=== PATIENT | female | born 1965 | race Caucasian/White ===

== ENCOUNTER 2017-04-22 17:41 | Emergency (ER) | payer MEDICAID ==
[~2017-04-22] VITALS: Ht 167.6 cm; Wt 102.2 kg
[2017-04-22 18:14] VITALS: BP 180/93
--- NOTE | 2017-04-22 18:25 | NUR ---
Patient ambulated to bed 8. RN evaluating patient at bedside.
[2017-04-22] MEDS ORDERED: IBUPROFEN 600 MG TAB PO ONE (18:35)
--- NOTE | 2017-04-22 18:38 | NUR ---
PATIENT PRESENTS TO ED WITH C/O RIGHT KNEE PAIN X 1 YR----EXACERBATED PAIN 2 DAYS AGO, NO RECENT INJURY;DENIES SWELLING, DISCOLORATION. DENIES NUMBNESS/TINGLING SENSATION ON RT LEG;DENIES ANY MEDICAL HX;ENIES N/V/D; SKIN IS PINK/WARM/DRY; AAOX4 WITH EVEN AND STEADY GAIT; LUNGS CLEAR BL; HR EVEN AND REGULAR; PT DENIES ANY FEVER, CP, SOB, OR COUGH AT THIS TIME; PATIENT STATES PAIN OF 8/10 AT THIS TIME;PATIENT POSITIONED FOR COMFORT; HOB ELEVATED; BEDRAILS UP X2; BED DOWN.PLANNER/SCHEDULER MADE AWARE OF PT STATUS.
--- NOTE | 2017-04-22 18:47 | NUR ---
AMBULATED TO THE RESTROOM.
[2017-04-22 20:06] VITALS: BP 150/96
== END 2017-04-22 20:07 | disposition home or self-care (01) ==
LOC: MED 17:41
DX: M25.561 Pain in right knee (principal)
CPT/HCPCS: 73562; 99284; Q0092

== ENCOUNTER 2018-06-13 12:20 | Emergency (ER) | payer SELFPAY ==
[~2018-06-13] VITALS: Ht 170.2 cm; Wt 104.3 kg
[2018-06-13 12:34] VITALS: BP 180/96
[2018-06-13] MEDS ORDERED: IBUPROFEN 600 MG TAB PO ONE (13:00)
[2018-06-13 14:13] VITALS: BP 165/87
== END 2018-06-13 14:13 | disposition home or self-care (01) ==
LOC: MED 12:20
DX: S80.02XA Contusion of left knee, initial encounter (principal); E11.9 Type 2 diabetes mellitus without complications; I10 Essential (primary) hypertension; Z90.49 Acquired absence of other specified parts of digestive tract; W11.XXXA Fall on and from ladder, initial encounter; Y93.89 Activity, other specified; Y92.89 Other specified places as the place of occurrence of the external cause; Y99.8 Other external cause status
CPT/HCPCS: 73562; 73590; 99284; Q0092

== ENCOUNTER 2019-03-16 14:01 | Emergency (ER) | payer SELFPAY ==
[~2019-03-16] VITALS: Ht 170.2 cm; Wt 105.3 kg
[2019-03-16 14:14] VITALS: BP 194/91
[2019-03-16] MEDS ORDERED: ALBUTEROL 0.083% 2.5 MG/3 ML NEBU INH ONE (15:05)
[2019-03-16] MEDS ORDERED: FAMOTIDINE 20 MG TAB PO ONE (15:05)
[2019-03-16] MEDS ORDERED: methylPREDNISolone SS 125 MG/2 ML VIAL IVP ONE (15:05)
[2019-03-16] MEDS ORDERED: PROMETHAZINE 25 MG/ML VIAL IM ONE (15:05)
[2019-03-16] MEDS ORDERED: IPRATROPIUM 0.02% 0.5 MG/2.5 ML NEBU INH ONE (15:05)
--- NOTE | 2019-03-16 15:06 | NUR ---
bib self for non productive cough x4 days. rr even and unlabored, bl bs clear throught out. dry hacking cough noted. pt awake and alert, in no respiratory distress. pt sitting in bed, no new needs at this time. no pmh
--- NOTE | 2019-03-16 15:07 | NUR ---
DR CASEY AT BEDSIDE FOR PT EVALUATION
[2019-03-16 15:58] LABS: BASOPHILS % (AUTO) 0.6 % (0.0-2.0); EOSINOPHILS # (AUTO) 0.3 K/uL (0-0.4); EOSINOPHILS % (AUTO) 3.6 % (0.0-4.0); HEMATOCRIT 41.8 % (36-48); HEMOGLOBIN 13.9 g/dL (12.0-16.0); LYMPHOCYTES # (AUTO) 3.1 K/uL (2.5-16.5); LYMPHOCYTES % (AUTO) 39.8 % (20.5-51.1); MEAN CORPUSCULAR HEMOGLOBIN 30 pg (27-31); MEAN CORPUSCULAR HGB CONC 33 g/dL (33-37); MEAN CORPUSCULAR VOLUME 90.7 fL (80-94); MONOCYTES # (AUTO) 0.4 K/uL (0.8-1.0); MONOCYTES % (AUTO) 5.4 % (1.7-9.3); NEUTROPHILS # (AUTO) 3.9 K/uL (1.8-7.7); NEUTROPHILS % (AUTO) 50.6 % (42.2-75.2); PLATELET COUNT (AUTO) 235 K/uL (140-450); RED BLOOD CELL COUNT(AUTO) 4.61 MIL/uL (4.20-5.40); RED CELL DISTRIBUTION WIDTH 14.3 % (11.6-13.7); WHITE BLOOD COUNT (AUTO) 7.8 K/uL (4.8-10.8)
[2019-03-16 16:01] LABS: PROTHROMBIN TIME 8.8 secs (10.8-13.4)
[2019-03-16 16:03] LABS: ANION GAP 13.7 (8-16); CARBON DIOXIDE 27.2 mmol/L (21-32); CREATININE 0.7 mg/dL (0.6-1.3); POTASSIUM 3.9 mmol/L (3.5-5.1)
--- NOTE | 2019-03-16 16:05 | NUR ---
NOTIFIED DR CASEY OF PT'S BP: 188/78, 76. NO FURTHER ORDERS AT THIS TIME.
[2019-03-16 16:08] LABS: ALBUMIN 3.6 g/dL (3.4-5.0); TOTAL BILIRUBIN 0.2 mg/dL (0.0-1.0)
[2019-03-16 16:16] LABS: C-REACTIVE PROTEIN QUANT < 0.2 mg/dL (0.0-0.9)
--- NOTE | 2019-03-16 16:35 | NUR ---
PT ASLEEP. EASILY AROUSABLE BY NAME. AAO X4. PT DENIES SOB, ANY SYMPTOMS OF DISTRESS.
[2019-03-16 16:40] LABS: CREATINE KINASE MB 1.7 ng/mL (0-3.6)
[2019-03-16 17:10] VITALS: BP 160/66
--- NOTE | 2019-03-16 17:10 | NUR ---
Patient discharged with v/s stable. Written and verbal after care instructions given and explained. Patient alert, oriented and verbalized understanding of instructions. Ambulatory with steady gait. All questions addressed prior to discharge. ID band removed. Patient advised to follow up with PMD. Rx of Levaquin, Promethazine DM, Prednisone given. Patient educated on indication of medication including possible reaction and side effects. Opportunity to ask questions provided and answered.
== END 2019-03-16 17:10 | disposition home or self-care (01) ==
LOC: MED 14:01
DX: J40 Bronchitis, not specified as acute or chronic (principal); J98.8 Other specified respiratory disorders
CPT/HCPCS: 36415; 71045; 80053; 81025; 82550; 82553; 83735; 83880; 84484; 85025; 85379; 85610; 85651; 86140; 93005; 94640; 96372; 96374; 99284; J2550; J2930; J7613; J7644; Q0092

== ENCOUNTER 2019-07-05 21:47 | Inpatient (IN) | payer MEDICAID ==
[~2019-07-05] VITALS: Ht 170.2 cm; Wt 94.8 kg
[2019-07-05 22:42] VITALS: BP 194/90
[2019-07-05] MEDS ORDERED: SODIUM CHLORIDE FLUSH 10 ML SYR IVF STA (22:45)
--- NOTE | 2019-07-05 22:45 | NUR ---
PT AMBULATED TO LOBBY. PROVIDING URINE.
[2019-07-05 23:41] LABS: BASOPHILS # (AUTO) 0.1 K/uL (0.00-0.22); BASOPHILS % (AUTO) 0.4 % (0.0-2.0); EOSINOPHILS # (AUTO) 0.1 K/uL (0-0.4); HEMOGLOBIN 15.3 g/dL (12.0-16.0); LYMPHOCYTES # (AUTO) 1.6 K/uL (2.5-16.5); LYMPHOCYTES % (AUTO) 11.8 % (20.5-51.1); MEAN CORPUSCULAR HEMOGLOBIN 30 pg (27-31); MEAN CORPUSCULAR HGB CONC 33 g/dL (33-37); MEAN CORPUSCULAR VOLUME 91.3 fL (80-94); MONOCYTES # (AUTO) 0.4 K/uL (0.8-1.0); MONOCYTES % (AUTO) 2.7 % (1.7-9.3); NEUTROPHILS # (AUTO) 11.2 K/uL (1.8-7.7); NEUTROPHILS % (AUTO) 84.1 % (42.2-75.2); PLATELET COUNT (AUTO) 289 K/uL (140-450); RED BLOOD CELL COUNT(AUTO) 5.04 MIL/uL (4.20-5.40); RED CELL DISTRIBUTION WIDTH 14.1 % (11.6-13.7); WHITE BLOOD COUNT (AUTO) 13.3 K/uL (4.8-10.8)
[2019-07-05 23:56] LABS: ANION GAP 14.3 (8-16); CARBON DIOXIDE 29.5 mmol/L (21-32); CREATININE 0.8 mg/dL (0.6-1.3); POTASSIUM 3.8 mmol/L (3.5-5.1)
[2019-07-06 00:09] LABS: TOTAL BILIRUBIN 0.5 mg/dL (0.0-1.0)
--- NOTE | 2019-07-06 00:12 | NUR ---
pt ambulated to bed 05
[2019-07-06 00:13] LABS: APPEARANCE,URINE SL CLOUDY (CLEAR); BILIRUBIN,URINE NEGATIVE (NEGATIVE); BLOOD, URINE NEGATIVE (NEGATIVE); COLOR,URINE YELLOW (YELLOW); LEUKOCYTE ESTERASE ,URINE 1+ (NEGATIVE); NITRITE, URINE NEGATIVE (NEGATIVE); UGLUCOSE NEGATIVE (NEGATIVE)
--- NOTE | 2019-07-06 00:21 | NUR ---
PT C/O ABD X6HRS. 3 EPISODES OF VOMITING SINCE ARRIVAL TO ED. DENIES DIARRHEA. DENIES FEVER. 10/10 CONSTANT SHARP PAIN. ABD SOFT, ROUND. PT GUARDING ABD IN BED. VSS AT THIS TIME. MEDHX: DENIES ALLERGIES: DENIES
[2019-07-06] MEDS ORDERED: NACL 0.9% 1,000 ML IV ONE (00:36)
[2019-07-06] MEDS ORDERED: MORPHINE SULFATE 4 MG/ML SYR IVP ONE ×3 (00:40→05:10)
[2019-07-06] MEDS ORDERED: ONDANSETRON 4 MG/2 ML VIAL IVP ONE (00:40)
[2019-07-06 01:04] LABS: RBC,URINE 0-5 /HPF (0-5); WBC,URINE 16-25 (MOD) /HPF (0-5)
--- NOTE | 2019-07-06 01:25 | NUR ---
PT RESTING IN BED WITH EYES CLOSED. VSS AT THIS TIME. WILL CONTINUE TO MONITOR.
--- NOTE | 2019-07-06 01:32 | NUR ---
PT STATES RELIEF OF PAIN AND DISCOMFORT AT THIS TIME
[2019-07-06] MEDS ORDERED: cefTRIAXone 1,000 MG VIAL ONE (02:17)
--- NOTE | 2019-07-06 03:01 | NUR ---
PT STATES INCREASING ABD PAIN. 8/10 SHARP PAIN AT THIS TIME. DENIES NAUSEA. MD MADE AWARE. WILL CONTINUE TO MONITOR
--- NOTE | 2019-07-06 03:26 | NUR ---
PT TO CT VIA WHEELCHAIR.
--- NOTE | 2019-07-06 03:37 | NUR ---
PT RETURNED FROM CT VIA WHEELCHAIR
--- NOTE | 2019-07-06 04:22 | NUR ---
PT SLEEPING IN BED. NOTICABLE RISE AND FALL OF THE CHEST. VSS. WILL CONTINUE TO MONITOR.
--- NOTE | 2019-07-06 06:15 | NUR ---
NG TUBE PLACED 16 YORUBA, AIR AUSCULTATED IN STOMACH, STOMACH CONTENTS ASPIRATED. PT TOLERATED PROCEDURE WELL. NG TUBE TAPED TO NOSE, CHEEK, AND NECK. MD MADE AWARE. XRAYS ORDER TO VERIFY PLACEMENT.
[2019-07-06] MEDS ORDERED: ACETAMINOPHEN 325 MG TAB PO PRN (06:25)
[2019-07-06] MEDS ORDERED: LORazepam 2 MG/ML VIAL IM/IVP PRN (06:25)
[2019-07-06] MEDS ORDERED: HYDROcodone/APAP 5/325 MG 1 TAB TAB PO PRN (06:25)
[2019-07-06] MEDS ORDERED: DOCUSATE SODIUM 100 MG GELCAP PO PRN (06:25)
[2019-07-06] MEDS ORDERED: ONDANSETRON 4 MG/2 ML VIAL IM/IVP PRN (07:30)
--- NOTE | 2019-07-06 07:30 | NUR ---
Patient will be admitted to care of DR WERNER. Admited to MED/SURG VIA [place] W/ VSS. Will go to room 120A. Belongings list completed. Report to CHERYL GLOVER.
[2019-07-06 07:45] VITALS: BP 133/68
--- NOTE | 2019-07-06 07:45 | NUR ---
PATIENT ARRIVED UNIT VIA [facility] ACCOMPANIED BY ER NURSE MARIA ELENA. ASSISTED PATIENT TO TRANSFER FROM [facility] TO BED AND POSITIONED PATIENT COMFORTABLY. PATIENT IS AAOX4, SPEAK YORUBA AND ABLE TO MAKE NEED KNOWN. RESPIRATION EVEN AND UNLABORED ON RA. DENIED PAIN, SOB AND NAUSEA, VOMITING AT THIS TIME. NO SIGNS OF DISTRESS NOTED. IV ON R AC 20G, CLEAN AND INTACT, NOT INFUSING THIS TIME. NG TUBE IN PLACE AND CONNECTED TO SUCTIONING. SKIN CLEAN AND DRY. PATIENT IS CONTINENT AND ABLE TO AMBULATE WITH STANDBY ASSIST. ORIENTED PATIENT TO THE ROOM, AND DEMONSTRATED TO PATIENT ON HOW TO USE THE CALL LIGHT, BED REMOTE, TV, TELEPHONE, NURSES' REGISTRY DIRECTOR, LIGHTS, AND BATHROOM, PATIENT VERBALIZED UNDERSTANDING. VITAL SIGNS TAKEN AND MRSA COLLECTED. NPO ENFORCED AND SIGN POSTED ON DOOR. SAFETY MEASURES IN PLACE. BED IN LOW POSITION AND CALL LIGHT WITHIN REACH. INSTRUCTED PATIENT TO USE THE CALL LIGHT FOR ANY ASSISTANCE AND PATIENT WAS AWARE.
[2019-07-06] MEDS: DEXT 5% / NACL 0.45% 1,000 ML IV SCH ×2 (07:51→16:23)
--- NOTE | 2019-07-06 07:51 | NUR ---
STARTED IVF MD ORDER, AND PATIENT TOLERATED WELL. APPLIED TELE MONITOR AND EDUCATION PROVIDED TO PATIENT AND PATIENT VERBALIZED UNDERSTANDING. PATIENT AWAKE AND LOOKING AT HER PHONE AT THIS TIME. DENIED PAIN, SOB, AND DIZZINESS. NO SIGNS OF DISTRESS NOTED. SAFETY MEASURES IN PLACE. INSTRUCTED PATIENT TO USE THE CALL LIGHT FOR ANY ASSISTANCE AND PATIENT SAID OK.
--- NOTE | 2019-07-06 08:17 | NUR ---
PATIENT AWAKE AND TALKING TO VISITOR BY BEDSIDE. NO SIGNS OF DISTRESS NOTED. SAFETY MEASURES IN PLACE.
[2019-07-06 08:37] LABS: PHOSPHORUS 3.8 mg/dL (2.5-4.9); THYROID STIMULATING HORMONE 1.66 uIU/mL (0.34-3.74)
--- NOTE | 2019-07-06 09:15 | NUR ---
PATIENT AWAKE AND TALKING TO VISITOR AT BEDSIDE. DENIED PAIN, NAUSEA AND VOMITING AT THIS TIME. NG TUBE IN PLACE AND CONNECTED TO SUCTION. NO SIGNS OF DISTRESS NOTED. SAFETY MEASURES IN PLACE. BED IN LOW POSITION AND CALL LIGHT WITHIN REACH. INSTRUCTED PATIENT TO USE THE CALL LIGHT FOR ANY ASSISTANCE AND PATIENT WAS AWARE.
[2019-07-06] MEDS ORDERED: MORPHINE SULFATE 2 MG/ML SYR IVP PRN (09:30)
--- NOTE | 2019-07-06 11:36 | NUR ---
PATIENT IS RESTING ON BED AT THIS TIME. AROUSABLE TO VOICE. RESPIRATION EVEN AND UNLABORED ON RA. DENIED PAIN, NAUSEA AND VOMITING AT THIS TIME. NG TUBE IN PLACE AND NOT SUCTIONING AT THIS TIME DUE TO XR SMALL BOWEL FOLLOW THROUGH IN PROGRESS. NO SIGNS OF DISTRESS NOTED. SAFETY MEASURES IN PLACE. BED IN LOW POSITION AND CALL LIGHT WITHIN REACH. INSTRUCTED PATIENT TO USE THE CALL LIGHT FOR ANY ASSISTANCE AND PATIENT WAS AWARE.
--- NOTE | 2019-07-06 12:11 | NUR ---
PATIENT HAS BEEN SCREENED AND CATEGORIZED MODERATE NUTRITION RISK. PATIENT WILL BE SEEN WITHIN 3-5 DAYS OF ADMISSION. 07/08/19 07/10/[address]
--- NOTE | 2019-07-06 13:45 | NUR ---
PATIENT IS AWAKE AND RESTING ON BED AT THIS TIME. DENIED PAIN, NAUSEA AND VOMITING. NO SIGNS OF DISTRESS NOTED. SAFETY MEASURES IN PLACE. BED IN LOW POSITION AND CALL LIGHT WITHIN REACH. INSTRUCTED PATIENT TO USE THE CALL LIGHT FOR ANY ASSISTANCE AND PATIENT WAS AWARE.
[2019-07-06 14:25] LABS: BASOPHILS # (AUTO) 0.1 K/uL (0.00-0.22); BASOPHILS % (AUTO) 0.6 % (0.0-2.0); EOSINOPHILS # (AUTO) 0.2 K/uL (0-0.4); EOSINOPHILS % (AUTO) 1.8 % (0.0-4.0); HEMATOCRIT 44.5 % (36-48); HEMOGLOBIN 14.5 g/dL (12.0-16.0); LYMPHOCYTES # (AUTO) 2.9 K/uL (2.5-16.5); LYMPHOCYTES % (AUTO) 25.5 % (20.5-51.1); MEAN CORPUSCULAR HEMOGLOBIN 30 pg (27-31); MEAN CORPUSCULAR HGB CONC 33 g/dL (33-37); MEAN CORPUSCULAR VOLUME 92.4 fL (80-94); MONOCYTES # (AUTO) 0.8 K/uL (0.8-1.0); MONOCYTES % (AUTO) 7.1 % (1.7-9.3); NEUTROPHILS # (AUTO) 7.4 K/uL (1.8-7.7); PLATELET COUNT (AUTO) 270 K/uL (140-450); RED BLOOD CELL COUNT(AUTO) 4.82 MIL/uL (4.20-5.40); RED CELL DISTRIBUTION WIDTH 14.2 % (11.6-13.7); WHITE BLOOD COUNT (AUTO) 11.4 K/uL (4.8-10.8)
--- NOTE | 2019-07-06 15:21 | NUR ---
PATIENT IS RESTING ON BED AT THIS TIME. DENIED PAIN, NAUSEA AND VOMITING. NO SIGNS OF DISTRESS NOTED. SAFETY MEASURES IN PLACE. BED IN LOW POSITION AND CALL LIGHT WITHIN REACH. INSTRUCTED PATIENT TO USE THE CALL LIGHT FOR ANY ASSISTANCE AND PATIENT WAS AWARE.
[2019-07-06 16:00] VITALS: BP 136/78
[2019-07-06 17:08] LABS: ALBUMIN 3.4 g/dL (3.4-5.0); ANION GAP 13.8 (8-16); CARBON DIOXIDE 27.1 mmol/L (21-32); CREATININE 0.8 mg/dL (0.6-1.3); MAGNESIUM 2.1 mg/dL (1.8-2.4); PHOSPHORUS 4.8 mg/dL (2.5-4.9); POTASSIUM 3.9 mmol/L (3.5-5.1); TOTAL BILIRUBIN 0.5 mg/dL (0.0-1.0)
--- NOTE | 2019-07-06 17:19 | NUR ---
PATIENT AWAKE AND LOOKING AT HER PHONE AT THIS TIME. DENIED PAIN, SOB, NAUSEA AND VOMITING. NO SIGNS OF DISTRESS NOTED. SAFETY MEASURES IN PLACE. BED IN LOW POSITION AND CALL LIGHT WITHIN REACH. INSTRUCTED PATIENT TO USE THE CALL LIGHT FOR ANY ASSISTANCE AND PATIENT WAS AWARE.
--- NOTE | 2019-07-06 17:55 | NUR ---
PATIENT AWAKE AND TALKING TO VISITORS BY BEDSIDE. NO SIGNS OF DISTRESS NOTED. SAFETY MEASURES IN PLACE. BED IN LOW POSITION AND CALL LIGHT WITHIN REACH. INSTRUCTED PATIENT TO USE THE CALL LIGHT FOR ANY ASSISTANCE AND PATIENT SAID OK.
--- NOTE | 2019-07-06 19:15 | NUR ---
ENDORSED PATIENT AT BEDSIDE TO GANG SAW OPERATOR NURSE. PATIENT AWAKE USING HER LAPTOP ON BED. NO SIGNS OF DISTRESS NOTED. PATIENT IS IN STABLE CONDITION. SAFETY MEASURES IN PLACE.
--- NOTE | 2019-07-06 19:16 | NUR ---
Received endorsement from AM shift RN; patient A/Ox4, able to make needs known, [place]ian speaking, ambulatory. Introduced self, updated board. No SOB or distress noted, NG tube noted. IV site on right antecubital, 20 gauge, with IVF running at 100mL/hr. Skin intact. Bed in the lowest position, call light within reach. Initial assessment done. Will continue to monitor.
--- NOTE | 2019-07-06 21:10 | NUR ---
Due meds given, tolerated well.
--- NOTE | 2019-07-06 22:36 | NUR ---
Dr. Escobar went to bedside to assess patient. Orders received to remove NG tube and placed patient on full liquid diet. Orders carried out.
--- NOTE | 2019-07-06 23:40 | NUR ---
Vitals taken. No distress noted. Assisted patient to the restroom.
[2019-07-07] VITALS: BP 157/76
--- NOTE | 2019-07-07 01:10 | NUR ---
Checks made. Patient asleep, eyes closed. Visible chest rise and fall noted.
[2019-07-07] MEDS: DEXT 5% / NACL 0.45% 1,000 ML IV SCH (02:10)
--- NOTE | 2019-07-07 03:15 | NUR ---
Rounds done. Resident asleep at this time. Visible chest rise and fall noted.
--- NOTE | 2019-07-07 04:20 | NUR ---
Patient asleep. No apparent distress noted.
--- NOTE | 2019-07-07 06:10 | NUR ---
Vitals stable. Due medications given. Will endorse to AM shift RN for continuity of care.
[2019-07-07 06:13] LABS: BASOPHILS % (AUTO) 0.4 % (0.0-2.0); EOSINOPHILS # (AUTO) 0.3 K/uL (0-0.4); EOSINOPHILS % (AUTO) 3.3 % (0.0-4.0); HEMATOCRIT 39.4 % (36-48); HEMOGLOBIN 12.9 g/dL (12.0-16.0); LYMPHOCYTES # (AUTO) 3.5 K/uL (2.5-16.5); LYMPHOCYTES % (AUTO) 38.2 % (20.5-51.1); MEAN CORPUSCULAR HEMOGLOBIN 30 pg (27-31); MEAN CORPUSCULAR HGB CONC 33 g/dL (33-37); MEAN CORPUSCULAR VOLUME 92.6 fL (80-94); MONOCYTES # (AUTO) 0.6 K/uL (0.8-1.0); MONOCYTES % (AUTO) 6.1 % (1.7-9.3); NEUTROPHILS # (AUTO) 4.7 K/uL (1.8-7.7); PLATELET COUNT (AUTO) 226 K/uL (140-450); RED BLOOD CELL COUNT(AUTO) 4.25 MIL/uL (4.20-5.40); RED CELL DISTRIBUTION WIDTH 14.2 % (11.6-13.7); WHITE BLOOD COUNT (AUTO) 9.1 K/uL (4.8-10.8)
[2019-07-07 06:17] LABS: ANION GAP 11.8 (8-16); CARBON DIOXIDE 29.9 mmol/L (21-32); CREATININE 0.6 mg/dL (0.6-1.3); POTASSIUM 3.7 mmol/L (3.5-5.1)
[2019-07-07] MEDS ORDERED: NACL 0.45% 1,000 ML IV SCH (06:25)
[2019-07-07 06:42] LABS: CHOL/HDL RATIO 2.6 (1-4.5); MAGNESIUM 1.9 mg/dL (1.8-2.4); PHOSPHORUS 3.7 mg/dL (2.5-4.9)
--- NOTE | 2019-07-07 07:16 | NUR ---
RECEIVED BEDSIDE REPORT FROM MATERIAL ASSISTANT NURSE FOR CONTINUITY OF CARE. PATIENT IS AWAKE AND RESTING ON BED AT THIS TIME. PATIENT IS AAOX4. RESPIRATION EVEN AND UNLABORED ON RA. DENIED PAIN, SOB, NAUSEA, AND VOMITING. NO SIGNS OF DISTRESS NOTED. IV CLEAN AND PATENT, INFUSING PER MD ORDER. PATIENT IS CONTINENT AND ABLE TO AMBULATE WITH STEADY GAIT. SKIN CLEAN AND DRY. DISCUSSED PLAN OF CARE WITH PATIENT AND PATIENT VERBALIZED UNDERSTANDING. SAFETY MEASURES IN PLACE. BED IN LOW POSITION AND CALL LIGHT WITHIN REACH. INSTRUCTED PATIENT TO USE THE CALL LIGHT FOR ANY ASSISTANCE AND PATIENT WAS AWARE.
[2019-07-07 08:00] VITALS: BP 140/75
[2019-07-07] MEDS ORDERED: cefTRIAXone 2,000 MG in DEXTROSE 5% 100 ML IV SCH (09:00)
--- NOTE | 2019-07-07 09:10 | NUR ---
ADMINISTERED MED PER MD ORDER VIA IVPB, MED EDUCATION PROVIDED TO PATIENT AND PATIENT TOLERATED WELL. PATIENT AWAKE AND TALKING TO VISITOR BY BEDSIDE. DENIED PAIN, NAUSEA AND VOMITING. NO SIGNS OF DISTRESS NOTED. SAFETY MEASURES IN PLACE. BED IN LOW POSITION AND CALL LIGHT WITHIN REACH. INSTRUCTED PATIENT TO USE THE CALL LIGHT FOR ANY ASSISTANCE AND PATIENT WAS AWARE.
--- NOTE | 2019-07-07 11:40 | NUR ---
PATIENT AWAKE AND WATCHING MOVIE ON HER LAPTOP. DENIED PAIN, SOB, NAUSEA AND VOMITING. INFORMED PATIENT THAT DR HAS ADVANCE DIET FROM CLEAR LIQUID TO REGULAR DIET TO SEE IF PATIENT IS ABLE TO TOLERATED. PER PATIENT, SHE HAS PASSES GAS A COUPLE TIMES. NO SIGNS OF DISTRESS NOTED. SAFETY MEASURES IN PLACE. BED IN LOW POSITION AND CALL LIGHT WITHIN REACH. INSTRUCTED PATIENT TO USE THE CALL LIGHT FOR ANY ASSISTANCE AND PATIENT WAS AWARE.
[2019-07-07] MEDS ORDERED: LACT10CA1 PO (12:54)
[2019-07-07] MEDS ORDERED: NITR100C7 PO (12:54)
--- NOTE | 2019-07-07 13:15 | NUR ---
PATIENT IS WATCHING MOVIE FROM HER LAPTOP. DENIED NAUSEA, VOMITING AND PAIN. PER PATIENT, SHE WENT TO BATHROOM TWICE AND BM IS SOLID, YELLOW, NO DIARRHEA. NO SIGNS OF DISTRESS NOTED. WILL PREPARE DC DOCUMENT. PATIENT WAS AWARE AND SAID "I WILL CALL MY FAMILY TO PICK ME UP, AND I WANT THE FLU VACCINE BEFORE GOING HOME." WILL PREPARE DC DOCUMENT. SAFETY MEASURES IN PLACE. BED IN LOW POSITION AND CALL LIGHT WITHIN REACH. INSTRUCTED PATIENT TO USE THE CALL LIGHT FOR ANY ASSISTANCE AND PATIENT WAS AWARE.
[2019-07-07] MEDS ORDERED: INFLUENZA VACCINE QUAD 0.5 ML SYR IMVAC PRN (14:10)
--- NOTE | 2019-07-07 14:15 | NUR ---
PATIENT STATED THAT HER BOYFRIEND WILL BE ARRIVED THE HOSPITAL IN 15 MINS. PATIENT IS CHANGING INTO HER OWN CLOTHES AT THIS TIME. NO SIGNS OF DISTRESS NOTED. SAFETY MEASURES IN PLACE.
--- NOTE | 2019-07-07 14:32 | NUR ---
ADMINISTERED FLU VACCINE VIA IM LEFT DELTOID PER MD ORDER, VACCINATION EDUCATION PROVIDED TO PATIENT AND PATIENT VERBALIZED UNDERSTANDING. PATIENT IS PACKING HER BELONGINGS AND GETTING READY TO BE DISCHARGE. NO SIGNS OF DISTRESS NOTED. SAFETY MEASURES IN PLACE.
--- NOTE | 2019-07-07 14:40 | NUR ---
DISCHARGE EDUCATION PROVIDED TO PATIENT AT BEDSIDE. EDUCATED PATIENT ON MD FOLLOW UP, SEEK MEDICAL HELP IN CASE OF MEDICAL EMERGENCY, DISEASE MANAGEMENT, MEDICATIONS REGIMEN, SIDE EFFECTS, AND DIET. ANSWERED ALL PATIENT'S QUESTIONS AND PATIENT VERBALIZED UNDERSTANDING. PATIENT WAS AWARE THAT PRESCRIPTION SENT TO HER PREFERRED PHARMACY. REMOVED ALL ARM BANDS AND DC IV, IV CANNULA INTACT AND NO BLEEDING AT IV SITE. PATIENT CHECKED ALL CABINETS AND TOOK ALL HER BELONGINGS. PRINTED DISCHARGE PACKET PROVIDED TO PATIENT. STUDENT NURSE WHEEL CHAIR PATIENT TO THE FRONT LOBBY. PATIENT IS GOING TO DISCHARGE AT THIS TIME ACCOMPANY BY BOYFRIEND. PATIENT IS IN STABLE CONDITION.
== END 2019-07-07 14:35 | disposition home or self-care (01) | DRG 463 ==
LOC: MED 21:47 → MTU 07-06 06:23
PROVIDERS: ADMIT General Practice; ATTEND General Practice
DX: N39.0 Urinary tract infection, site not specified (principal); E66.9 Obesity, unspecified; Z68.32 Body mass index [BMI] 32.0-32.9, adult; Z71.3 Dietary counseling and surveillance; Z82.3 Family history of stroke; Z83.3 Family history of diabetes mellitus; Z90.49 Acquired absence of other specified parts of digestive tract; Z23 Encounter for immunization
CPT/HCPCS: 36415; 71045; 74250; 76700; 80048; 80053; 81001; 81025; 82150; 83036; 83690; 83735; 83880; 84100; 84443; 85025; 85610; 85730; 87081; 87086; 96361; 96365; 96375; 96376; 99285; J0696; J2270; J2405; J7060; Q0092

== ENCOUNTER 2020-03-22 16:43 | Emergency (ER) | payer MEDICAID, OTHER ==
[~2020-03-22] VITALS: Ht 170.2 cm; Wt 95.7 kg
[~2020-03-22 16:43] MED LIST: LACT10CA1 PO; NITR100C7 PO
[2020-03-22 16:55] VITALS: BP 180/71
--- NOTE | 2020-03-22 17:05 | NUR ---
PT C/O INTERMITTENT NON-RADIATING STERNAL CP WITH PRESSURE SENSATION SINCE LAST NIGHT. PT WAS SEEN IN UC AND EKG DONE SHOWS SB, RBBB, AND SEPTAL OK. PT DENIES SOB COUGH, FEVER, NAUSEA, VOMITING, DIARRHEA. PT DENIES ANY FEVER, CP, SOB, OR COUGH AT THIS TIME; PATIENT STATES PAIN OF 2/10 AT THIS TIME; VSS; PATIENT POSITIONED FOR COMFORT; HOB ELEVATED; BEDRAILS UP X1; BED DOWN. ER MD MADE AWARE OF PT STATUS.
[2020-03-22] MEDS ORDERED: ASPIRIN 325 MG TAB PO ONE (17:20)
[2020-03-22] MEDS ORDERED: DICYCLOMINE HCL LIQUID 20 MG, ALUMINUM HYD/MAG/SIMETHICONE 30 ML, LIDOCAINE VISCOUS 2% ... PO ONE ×3 (17:20)
[2020-03-22] MEDS ORDERED: ALUMINUM HYD/MAG/SIMETHICONE 30 ML UDC ONE (17:26)
[2020-03-22] MEDS ORDERED: DICYCLOMINE HCL LIQUID 10 MG/5 ML UDC ONE (17:26)
[2020-03-22] MEDS ORDERED: LIDOCAINE VISCOUS 2% 20 ML UDC ONE (17:26)
--- NOTE | 2020-03-22 17:29 | NUR ---
noc technician at bedside.
[2020-03-22 18:01] LABS: BASOPHILS # (AUTO) 0.1 K/uL (0.00-0.22); BASOPHILS % (AUTO) 0.9 % (0.0-2.0); EOSINOPHILS # (AUTO) 0.2 K/uL (0-0.4); EOSINOPHILS % (AUTO) 2.5 % (0.0-4.0); HEMATOCRIT 41.5 % (36-48); HEMOGLOBIN 13.5 g/dL (12.0-16.0); LYMPHOCYTES # (AUTO) 2.8 K/uL (2.5-16.5); LYMPHOCYTES % (AUTO) 32.6 % (20.5-51.1); MEAN CORPUSCULAR HEMOGLOBIN 30 pg (27-31); MEAN CORPUSCULAR HGB CONC 33 g/dL (33-37); MEAN CORPUSCULAR VOLUME 93.2 fL (80-94); MONOCYTES # (AUTO) 0.4 K/uL (0.8-1.0); PLATELET COUNT (AUTO) 249 K/uL (140-450); RED BLOOD CELL COUNT(AUTO) 4.45 MIL/uL (4.20-5.40); RED CELL DISTRIBUTION WIDTH 14.2 % (11.6-13.7); WHITE BLOOD COUNT (AUTO) 8.5 K/uL (4.8-10.8)
[2020-03-22 18:23] LABS: ALBUMIN 3.8 g/dL (3.4-5.0); ANION GAP 12.5 (8-16); CARBON DIOXIDE 30.2 mmol/L (21-32); CREATININE 0.8 mg/dL (0.6-1.3); POTASSIUM 4.7 mmol/L (3.5-5.1); TOTAL BILIRUBIN 0.2 mg/dL (0.0-1.0)
[2020-03-22 19:32] VITALS: BP 153/68
--- NOTE | 2020-03-22 19:32 | NUR ---
Jania beverly in ED - 03/22/20 at 1933 by [id number] Patient discharged with v/s stable. Written and verbal after care instructions given and explained. Patient verbalized understanding. Ambulatory with steady gait. All questions addressed prior to discharge. Advised to follow up with PMD.
== END 2020-03-22 19:32 | disposition home or self-care (01) ==
LOC: MED 16:43
DX: R10.13 Epigastric pain (principal); I10 Essential (primary) hypertension; R07.9 Chest pain, unspecified
CPT/HCPCS: 36415; 71045; 80053; 83880; 84484; 85025; 93005; 99285; Q0092

== ENCOUNTER 2021-05-26 07:06 | Emergency (ER) | payer OTHER ==
[~2021-05-26] VITALS: Ht 170.2 cm; Wt 90.7 kg
[2021-05-26 07:24] VITALS: BP 178/90
--- NOTE | 2021-05-26 07:28 | NUR ---
to lobby a/w bed ambulatory
--- NOTE | 2021-05-26 07:29 | NUR ---
seen and examined by kerried with orders
[2021-05-26] MEDS ORDERED: IBUPROFEN 600 MG TAB PO ONE (07:30)
[2021-05-26] MEDS ORDERED: IBUP-2213 PO (08:53)
== END 2021-05-26 09:13 | disposition home or self-care (01) ==
LOC: MED 07:06
DX: S86.811A Strain of other muscle(s) and tendon(s) at lower leg level, right leg, initial encounter (principal); W18.39XA Other fall on same level, initial encounter; Y93.89 Activity, other specified; Y92.89 Other specified places as the place of occurrence of the external cause; Y99.8 Other external cause status
CPT/HCPCS: 93971; 99284; Q0092

== ENCOUNTER 2022-02-22 01:23 | Emergency (ER) | payer OTHER ==
[~2022-02-22] VITALS: Ht 170.2 cm; Wt 90.7 kg
[~2022-02-22 01:23] MED LIST changes: +IBUP-2213 PO
[2022-02-22 01:30] VITALS: BP 171/106
--- NOTE | 2022-02-22 01:30 | NUR ---
TO BED AMBULATORY
[2022-02-22] MEDS ORDERED: KETOROLAC 30 MG/ML VIAL IVP ONE (01:35)
[2022-02-22] MEDS ORDERED: NACL 0.9% 1,000 ML IV ONE (01:35)
[2022-02-22 01:51] LABS: BASOPHILS # (AUTO) 0.1 K/uL (0.00-0.22); BASOPHILS % (AUTO) 0.7 % (0.0-2.0); EOSINOPHILS # (AUTO) 0.3 K/uL (0-0.4); EOSINOPHILS % (AUTO) 4.1 % (0.0-4.0); HEMATOCRIT 43.1 % (36-48); HEMOGLOBIN 14.3 g/dL (12.0-16.0); LYMPHOCYTES # (AUTO) 2.9 K/uL (2.5-16.5); LYMPHOCYTES % (AUTO) 37.4 % (20.5-51.1); MEAN CORPUSCULAR HEMOGLOBIN 30 pg (27-31); MEAN CORPUSCULAR HGB CONC 33 g/dL (33-37); MEAN CORPUSCULAR VOLUME 90.9 fL (80-94); MONOCYTES # (AUTO) 0.5 K/uL (0.8-1.0); MONOCYTES % (AUTO) 7.1 % (1.7-9.3); NEUTROPHILS # (AUTO) 3.9 K/uL (1.8-7.7); NEUTROPHILS % (AUTO) 50.7 % (42.2-75.2); PLATELET COUNT (AUTO) 254 K/uL (140-450); RED BLOOD CELL COUNT(AUTO) 4.74 MIL/uL (4.20-5.40); WHITE BLOOD COUNT (AUTO) 7.8 K/uL (4.8-10.8)
[2022-02-22 01:51] LABS: APPEARANCE,URINE CLEAR (CLEAR); BILIRUBIN,URINE NEGATIVE (NEGATIVE); BLOOD, URINE NEGATIVE (NEGATIVE); COLOR,URINE YELLOW (YELLOW); LEUKOCYTE ESTERASE ,URINE 1+ (NEGATIVE); NITRITE, URINE NEGATIVE (NEGATIVE); UGLUCOSE NEGATIVE (NEGATIVE)
[2022-02-22 01:57] LABS: RBC,URINE 0-5 /HPF (0-5)
--- NOTE | 2022-02-22 02:00 | NUR ---
RECEIVED IN BED 12 WITH C/O EPIGASTRIC PAIN, GOING TO HER LOWER ABD PAIN FOR 3 DAYS, NAUSEA, WEAKNESS
[2022-02-22 02:04] LABS: ALBUMIN 4.1 g/dL (3.4-5.0); ANION GAP 9.3 (8-16); CARBON DIOXIDE 32.4 mmol/L (21-32); CREATININE 0.8 mg/dL (0.6-1.3); POTASSIUM 3.7 mmol/L (3.5-5.1); TOTAL BILIRUBIN 0.4 mg/dL (0.0-1.0)
--- NOTE | 2022-02-22 02:05 | NUR ---
RETURNED FROM CT
[2022-02-22] MEDS ORDERED: cefTRIAXone 1,000 MG VIAL ONE (02:20)
--- NOTE | 2022-02-22 03:30 | NUR ---
RESTING MORE COMFORTABLY
[2022-02-22] MEDS ORDERED: NITR100C7 PO (04:00)
[2022-02-22] MEDS ORDERED: MAGN400S60 PO ×2 (04:00→04:01)
[2022-02-22 04:05] VITALS: BP 148/86
--- NOTE | 2022-02-22 04:05 | NUR ---
Patient discharged with v/s stable. Written and verbal after care instructions given and explained. Patient verbalized understanding. Ambulatory with steady gait. All questions addressed prior to discharge. Advised to follow up with PMD.
== END 2022-02-22 04:05 | disposition home or self-care (01) ==
LOC: MED 01:23
DX: K59.00 Constipation, unspecified (principal); N39.0 Urinary tract infection, site not specified; I10 Essential (primary) hypertension; Z90.49 Acquired absence of other specified parts of digestive tract; Z79.899 Other long term (current) drug therapy; Z79.2 Long term (current) use of antibiotics; Z79.1 Long term (current) use of non-steroidal anti-inflammatories (NSAID)
CPT/HCPCS: 36415; 74176; 80053; 81001; 82150; 83690; 85025; 87086; 96365; 96375; 99284; J0696; J1885; J7030

== ENCOUNTER 2023-03-17 12:12 | Emergency (ER) | payer OTHER ==
[~2023-03-17] VITALS: Ht 162.6 cm; Wt 81.6 kg
[~2023-03-17 12:12] MED LIST changes: +MAGN400S60 PO
[2023-03-17 12:38] VITALS: BP 173/82; PULSE 62; RESP 18; TEMP 97; O2SAT 98
[2023-03-17] MEDS ORDERED: NAPR-1704 PO (14:10)
--- NOTE | 2023-03-17 14:53 | NUR ---
Patient declines crutches and air splint, states "I have crutches and boot at home." WALLPAPER PRINTER Lewis made aware of patients refusing air splint and crutches.
[2023-03-17 14:58] VITALS: O2SAT 98
--- NOTE | 2023-03-17 15:03 | NUR ---
The patient's care was reviewed and supervised by KELI GUAMAN RN.
--- NOTE | 2023-03-17 15:03 | NUR ---
Patient discharged with v/s stable. Written and verbal after care instructions given and explained. Patient alert, oriented and verbalized understanding of instructions. Ambulatory with in custody. All questions addressed prior to discharge. ID band removed. Patient advised to follow up with PMD. Rx of NAPROSYN given. Patient educated on indication of medication including possible reaction and side effects. Opportunity to ask questions provided and answered.
== END 2023-03-17 15:03 | disposition home or self-care (01) ==
LOC: MED 12:12
DX: S93.492A Sprain of other ligament of left ankle, initial encounter (principal); I10 Essential (primary) hypertension; Z79.899 Other long term (current) drug therapy; W22.8XXA Striking against or struck by other objects, initial encounter; Y93.89 Activity, other specified; Y92.89 Other specified places as the place of occurrence of the external cause; Y99.8 Other external cause status
CPT/HCPCS: 73610; 99283

== ENCOUNTER 2024-04-07 20:07 | Emergency (ER) | payer OTHER ==
[~2024-04-07] VITALS: Ht 170.2 cm; Wt 90.7 kg
[~2024-04-07 20:07] MED LIST changes: +NAPR-1704 PO
[2024-04-07 20:13] VITALS: BP 158/92; PULSE 62; RESP 16; TEMP 98; O2SAT 99
== END 2024-04-07 20:21 | disposition left against medical advice (07) ==
LOC: MED 20:07
DX: M25.562 Pain in left knee (principal); Z53.21 Procedure and treatment not carried out due to patient leaving prior to being seen by health care provider